=== PATIENT | male | born 1955 | race Caucasian/White ===

== ENCOUNTER 2019-06-15 18:29 | Inpatient (IN) ==
[2019-06-15] MEDS ORDERED: Morphine Sulfate 2 MG/ML SYRINGE IVP ONE (18:49)
[2019-06-15 19:50] LABS: Basophils # 0.1 K/mcL (0.0-0.2); Basophils % 0.5 %; Eosinophils # 0.1 K/mcL (0.0-0.6); Eosinophils % 0.6 %; Hematocrit 53.6 % (37.5-50.1); Hemoglobin 19.5 g/dL (12.9-16.9); Immature Granulocytes % 0.4 % (0-4); Lymphocytes # 1.3 K/mcL (0.6-4.6); Lymphocytes % 12.4 %; Mean Corpuscular HGB Conc 36.4 g/dL (31.6-35.5); Mean Corpuscular Hemoglobin 35.4 pg (28.0-33.3); Mean Corpuscular Volume 97.3 fL (83.0-100.0); Monocytes # 0.8 K/mcL (0.0-1.3); Monocytes % 7.7 %; Neutrophils # 7.9 K/mcL (1.6-8.9); Platelet Count 160 K/mcL (140-400); Red Blood Count 5.51 M/mcL (4.19-5.50); Red Cell Distribution Width 12.4 % (11.5-14.5); Segmented Neutrophils % 78.4 %; White Blood Count 10.1 K/mcL (4.3-11.1)
[2019-06-15 20:11] LABS: BUN/Creatinine Ratio 12 (6-26); Blood Urea Nitrogen 9 mg/dL (8-23); Calcium 9.5 mg/dL (8.6-10.3); Carbon Dioxide 19 mEq/L (23-29); Chloride 105 mEq/L (98-107); Glucose 119 mg/dL (70-105); Osmolality,Calculated 280 (280-300); Potassium 3.5 mEq/L (3.5-5.1); Sodium 135 mEq/L (136-145); eGFR For African Americans > 60 (> 60); eGFR For Non-African Americans > 60 (> 60)
[2019-06-15 20:16] LABS: Troponin I 0.04 ng/mL (< 0.04)
[2019-06-15 20:17] LABS: Prothrombin Time 11.1 Seconds (9.4-12.1)
[2019-06-15 20:20] LABS: Activated Partial Thrombo Time 35.3 Seconds (26.0-36.0)
[2019-06-15] MEDS ORDERED: Isovue-370 500 ML BOTTLE IVP ONE (20:38)
[2019-06-15] MEDS ORDERED: Aspirin 325 MG TABLET PO ONE (23:01)
[2019-06-15] MEDS ORDERED: *HR* Labetalol 20 MG/4 ML SYRINGE IVP ONE (23:08)
[2019-06-16] MEDS: *HR* Labetalol 20 MG/4 ML SYRINGE IVP PRN ×3 (00:33→05:13)
[2019-06-16] MEDS ORDERED: Nitroglycerin 0.4 MG TAB.SUBL SL PRN (01:42)
[2019-06-16] MEDS ORDERED: *HR* OxyCODONE Immed Rel 5 MG TABLET PO PRN ×2 (02:18→12:42)
[2019-06-16] MEDS ORDERED: amLODIPine 5 MG TABLET PO SCH (02:22)
[2019-06-16 03:26] LABS: Basophils % 0.4 %; Eosinophils # 0.2 K/mcL (0.0-0.6); Eosinophils % 1.9 %; Hemoglobin 18.7 g/dL (12.9-16.9); Immature Granulocytes % 0.5 % (0-4); Lymphocytes # 1.4 K/mcL (0.6-4.6); Lymphocytes % 16.7 %; Mean Corpuscular Hemoglobin 34.9 pg (28.0-33.3); Monocytes # 0.8 K/mcL (0.0-1.3); Monocytes % 9.4 %; Neutrophils # 5.8 K/mcL (1.6-8.9); Platelet Count 151 K/mcL (140-400); Red Blood Count 5.36 M/mcL (4.19-5.50); Red Cell Distribution Width 12.6 % (11.5-14.5); Segmented Neutrophils % 71.1 %; White Blood Count 8.1 K/mcL (4.3-11.1)
[2019-06-16 03:47] LABS: Alanine Aminotransferase 13 Units/L (7-52); Albumin 4.1 g/dL (3.5-5.7); Albumin/Globulin Ratio 1.5 (1.1-2.2); Alkaline Phosphatase 57 Units/L (34-104); Aspartate Amino Transferase 18 Units/L (13-39); BUN/Creatinine Ratio 14 (6-26); Bilirubin,Direct 0.5 mg/dL (0.0-0.2); Bilirubin,Indirect 1.4 mg/dL (0.0-1.0); Bilirubin,Total 1.9 mg/dL (0.3-1.0); Blood Urea Nitrogen 10 mg/dL (8-23); Calcium 9.1 mg/dL (8.6-10.3); Carbon Dioxide 25 mEq/L (23-29); Chloride 104 mEq/L (98-107); Globulin 2.7 g/dL (2.4-3.5); Glucose 114 mg/dL (70-105); Osmolality,Calculated 286 (280-300); Potassium 3.4 mEq/L (3.5-5.1); Sodium 138 mEq/L (136-145); Total Protein 6.8 g/dL (6.4-8.9); eGFR For African Americans > 60 (> 60); eGFR For Non-African Americans > 60 (> 60)
[2019-06-16 03:53] LABS: Troponin I 0.04 ng/mL (< 0.04)
[2019-06-16 04:04] LABS: Thyroid Stimulating Hormone 10.962 mcIU/mL (0.340-5.600)
[2019-06-16] MEDS: *HR* Heparin 5,000 UNIT/ML VIAL SQ SCH ×2 (05:15→18:01)
[2019-06-16 08:34] LABS: Estimated Average Glucose 114 mg/dl
[2019-06-16 09:03] LABS: Chol/HDL Ratio 4.1 (0-4.9); Cholesterol 161 mg/dL (< 200); HDL Cholesterol 39 mg/dL (40-59); LDL Cholesterol,Calculated 99 mg/dL (0-99); Triglycerides 115 mg/dL (< 150)
[2019-06-16] MEDS: Aspirin 81 MG TAB.CHEW PO SCH (09:36)
[2019-06-16] MEDS: amLODIPine 5 MG TABLET PO SCH ×2 (09:36→09:42)
[2019-06-16] MEDS ORDERED: Ketorolac 15 MG/ML VIAL IVP PRN (12:41)
[2019-06-17] MEDS: *HR* Heparin 5,000 UNIT/ML VIAL SQ SCH ×2 (04:54→17:16)
[2019-06-17] MEDS: amLODIPine 5 MG TABLET PO SCH (08:13)
[2019-06-17] MEDS: Aspirin 81 MG TAB.CHEW PO SCH (08:13)
[2019-06-17] MEDS: Lisinopril 20 MG TABLET PO SCH (08:26)
[2019-06-17] MEDS: Isosorbide MONOnitrate (24 HR) 30 MG TAB.ER.24H PO SCH (11:17)
[2019-06-17] MEDS ORDERED: Saline Nasal Spray 44 ML BOTTLE NS PRN (19:42)
[2019-06-18 05:36] LABS: BUN/Creatinine Ratio 23 (6-26); Blood Urea Nitrogen 21 mg/dL (8-23); Calcium 9.2 mg/dL (8.6-10.3); Carbon Dioxide 24 mEq/L (23-29); Chloride 108 mEq/L (98-107); Glucose 114 mg/dL (70-105); Osmolality,Calculated 288 (280-300); Potassium 3.7 mEq/L (3.5-5.1); Sodium 137 mEq/L (136-145); eGFR For African Americans > 60 (> 60); eGFR For Non-African Americans > 60 (> 60)
[2019-06-18] MEDS: Levothyroxine 25 MCG TABLET PO SCH (05:45)
[2019-06-18] MEDS: *HR* Heparin 5,000 UNIT/ML VIAL SQ SCH ×2 (05:45→15:44)
[2019-06-18] MEDS: Lisinopril 20 MG TABLET PO SCH ×2 (07:59→10:02)
[2019-06-18] MEDS: cloNIDine HCl 0.1 MG TABLET PO SCH ×3 (07:59→21:06)
[2019-06-18] MEDS: Isosorbide MONOnitrate (24 HR) 30 MG TAB.ER.24H PO SCH (08:00)
[2019-06-18] MEDS: Aspirin 81 MG TAB.CHEW PO SCH (08:00)
[2019-06-18] MEDS: amLODIPine 5 MG TABLET PO SCH (08:00)
[2019-06-19] MEDS: Levothyroxine 25 MCG TABLET PO SCH (05:12)
[2019-06-19] MEDS: *HR* Heparin 5,000 UNIT/ML VIAL SQ SCH (05:12)
[2019-06-19] MEDS ORDERED: carvediloL 6.25 MG TABLET PO SCH (08:00)
[2019-06-19] MEDS: cloNIDine HCl 0.1 MG TABLET PO SCH (08:29)
[2019-06-19] MEDS: Isosorbide MONOnitrate (24 HR) 30 MG TAB.ER.24H PO SCH (08:30)
[2019-06-19] MEDS: amLODIPine 5 MG TABLET PO SCH (08:30)
[2019-06-19] MEDS: Aspirin 81 MG TAB.CHEW PO SCH (08:31)
[2019-06-19] MEDS: Lisinopril 20 MG TABLET PO SCH ×2 (08:31→09:31)
[2019-06-19 10:51] VITALS: BP 116/63
== END 2019-06-19 13:44 | disposition home or self-care (01) | DRG 305 ==
LOC: 3BNU 18:29 → EMEROOARM 18:29 → SUATTDRO 23:20 → 3BNU 06-16 00:15
PROVIDERS: ADMIT Internal Medicine; ATTEND Internal Medicine